=== PATIENT | male | born 1990 | race Caucasian/White ===

== ENCOUNTER 2024-04-15 17:25 | Inpatient (IN) | payer OTHER, SELFPAY ==
[2024-04-15] VITALS (13 sets, daily range): BP systolic 160–203; BP diastolic 102–128; PULSE 97–121; TEMP 37; O2SAT 98–100; BMI 41.1
--- NOTE | 2024-04-15 19:22 | PC.NURSE ---
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 Pt has rash to right forearm that pt reports is draining pus at home, none visualized upon assessment.
--- NOTE | 2024-04-15 19:28 | ED_ITS ---
HPI HPI - General Adult General Chief complaint: Skin/Abscess/Foreign Body Stated complaint: UE PAIN Time Seen by Provider: 04/15/24 19:22 Source: patient Mode of arrival: walk-in Limitations: no limitations History of Present Illness HPI narrative: patient presents complaining of a rash on his right forearm. States similar rash in the past of [place]. States he did apply calamine lotion and the rash has decreased some. also complains of feeling short of breath for a couple of days. No fever. Vomited once today. No chest pain. NIDDM Related Data Home Medications ?Medication ?Instructions ?Recorded ?Confirmed glimepiride 4 mg tablet 4 mg PO BID 04/15/24 04/15/24 metformin 1,000 mg tablet 1,000 mg PO BID 04/15/24 04/15/24 pioglitazone 45 mg tablet 45 mg PO .once daily 04/15/24 04/15/24 Allergies Allergy/AdvReac Type Severity Reaction Status Date / Time amoxicillin Allergy Mild Difficulty Verified 04/15/24 17:45 Breathing azithromycin [From Zithromax] Allergy Mild Anaphylaxis Verified 04/15/24 17:45 cefazolin Allergy Mild Anaphylaxis Verified 04/15/24 17:45 sulfamethoxazole Allergy Mild Anaphylaxis Verified 04/15/24 17:45 [From Bactrim] trimethoprim [From Bactrim] Allergy Mild Anaphylaxis Verified 04/15/24 17:45 Opioid HPI Opioid Management Most Recent Opioid Data: No Data to Display Review of Systems ROS Status of ROS 10 or more systems reviewed and unremark able except as noted in history and below Exam Constitutional Vital Signs, click to edit/add: Last Vital Signs Temp 98.6 F 04/15/24 17:32 Pulse 116 H 04/15/24 22:33 Resp 16 04/15/24 22:33 BP 160/102 H 04/15/24 19:20 Pulse Ox 98 04/15/24 22:33 O2 Del Method Room Air 04/15/24 22:33 Common normals: no apparent distress, average body habitus, oriented x3, no limitations, healthy appearing, alert and well nourished [facility] Common normals: normocephalic and head/scalp atraumatic Eye Common normals: PERRL, EOMs intact bilaterally and conjunctivae normal Respiratory Common normals: normal respiratory effort, no retractions, no use of accessory muscles and clear to auscultation bilaterally Cardio Common normals: regular rate, regular rhythm, S1 normal heart sound and S2 normal heart sound GI Common normals: Normal to inspection, nondistended, normoactive bowel sounds present, soft to palpation and non-tender Extremity Other: erythematous rash right forearm measuring approx 1 x 3 cm. center is dry from what appeared to be drainage earlier. nontender. Also few isolated 5mm satellite lesions Neuro Common normals: oriented x3, CN's II-XII intact bilaterally, moves all extremities, no focal motor deficits and no sensory deficits noted Psych Appearance: grossly normal Course Vital Signs Vital signs: Vital Signs Temperature 98.6 F 04/15/24 17:32 Pulse Rate 115 H 04/15/24 17:32 Respiratory Rate 20 04/15/24 17:32 Blood Pressure 203/128 H 04/15/24 17:32 Pulse Oximetry 99 04/15/24 17:32 Temperature 98.6 F 04/15/24 17:32 Pulse Rate 116 H 04/15/24 22:33 Respiratory Rate 16 04/15/24 22:33 Blood Pressure 160/102 H 04/15/24 19:20 Pulse Oximetry 98 04/15/24 22:33 Oxygen Delivery Method Room Air 04/15/24 22:33 Medical Decision Making MDM Narrative Medical decision making narrative: patient presents with contact dermatitis rash on his right forearm he also complained of feeling short of breath. States history of asthma as a kid workup in the department was neg including troponin, d-dimer , cxray. Patient given albuterol treatment and felt better. never had any obvious wheezing on exam but felt the treatment was definitely helpful. labs also demonstrated decreased bicarb. Patient denies past history of DKA. acetone returned positive and ABGs with evidence of metabolic acidosis. Patient and family informed of diagnosis of DKA. discussed with hospitalist who requested 10U reg insulin SQ and she will start insulin drip once he is upstairs Lab Data Labs: Lab Results 04/15/24 Range/Units 19:43 WBC 15.0 H (4.0-11.0) 10^3/uL RBC 5.37 (4.70-6.10) 10^6/uL Hgb 18.3 H (14.0-18.0) g/dL Hct 51.7 (42.0-54.0) % MCV 96.3 H (80.0-94.0) fL MCH 34.1 H (25.9-34.0) pg MCHC 35.4 H (29.9-35.2) g/dL RDW 11.9 (11.0-15.0) % Plt Count 338 (150-450) 10^3/uL MPV 10.7 (9.5-13.5) fL Neut % (Auto) 82.4 H (43.0-75.0) % Lymph % (Auto) 8.3 L (20.5-60.0) % [place] % (Auto) 7.0 (1.7-12.0) % Eos % (Auto) 0.5 L (0.9-7.0) % Baso % (Auto) 0.9 (0.2-2.0) % Neut # (Auto) 12.4 H (1.4-6.5) 10^3/uL Lymph # (Auto) 1.2 (1.2-3.8) 10^3/uL [place] # (Auto) 1.1 H (0.3-0.8) 10^3/uL Eos # (Auto) 0.1 (0.0-0.7) 10^3/uL Baso # (Auto) 0.1 (0.0-0.1) 10^3/uL Abs Immat Gran (auto) 0.13 H (0.00-0.03) 10^3/uL Imm/Tot Granulo (auto) 0.9 H (0.0-0.5) % D-Dimer 0.56 (<=0.59) mg/L FEU Sodium 130 L (136-145) mmol/L Potassium 4.6 (3.5-5.1) mmol/L Chloride 93 L (98-107) mmol/L Carbon Dioxide 12.8 L (21.0-32.0) mmol/L Anion Gap 28.8 BUN 15.0 (7.0-18.0) mg/dL Creatinine 1.40 H (0.70-1.30) mg/dL Est GFR ( Amer) >60 (>=60) Est GFR (Non-Af Amer) 59 L (>=60) BUN/Creatinine Ratio 10.7 Glucose 346 H (74-106) mg/dL Lactate 2.0 (0.4-2.0) mmol/L Calcium 9.8 (8.5-10.1) mg/dL Total Bilirubin 1.0 (0.2-1.0) mg/dL AST 8 L (15-37) U/L ALT 22 (16-63) U/L Alkaline Phosphatase 88 (46-116) U/L Troponin I High Sens <4.0 L (4.0-76.1) pg/mL Total Protein 8.8 H (6.4-8.2) g/dL Albumin 3.9 (3.4-5.0) g/dL Globulin 4.9 g/dL Albumin/Globulin Ratio 0.8 Discharge Plan Discharge Stand Alone Forms: Portal Instructions Chief Complaint: Skin/Abscess/Foreign Body Clinical Impression: Contact dermatitis, DKA, type 2 Patient Disposition: Admitted as Observation Prescriptions / Home Meds: No Action pioglitazone 45 mg tablet 45 mg PO .once daily metformin 1,000 mg tablet 1,000 mg PO BID glimepiride 4 mg tablet 4 mg PO BID Print Language: Welsh Additional Instructions: follow up with your doctor later this week for recheck Referrals: JULIA DEL CID [Primary Care Provider] - 1 week
--- NOTE | 2024-04-15 19:32 | XR_ITS ---
The [address] [address] Patient Name: PRINCESS NAZARIO MRN: [id number] date: 1990 Sex: M Assigned Patient Location: ER Current Patient Location: ER Accession/Order Number: [id number] Exam Date: 04/15/2024 19:42 Report Date: 04/15/2024 21:15 At the request of: ETHAN NAIDU Procedure: XR chest 2V EXAM: XR chest 2V HISTORY: short of breath COMPARISON: None. TECHNIQUE: PA, lateral chest x-ray. FINDINGS: Lungs clear without infiltrate or edema. Normal heart size and mediastinal contour. No pleural effusion or pneumothorax. XR/XR chest 2V IMPRESSION: Negative chest x-ray, no acute disease. Electronically authenticated by: DADA STEVENS Date: 04/15/2024 21:15
--- NOTE | 2024-04-15 19:33 | ECG_ITS ---
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
[2024-04-15 19:51] LABS: Basophils Absolute Auto 0.1 10^3/uL (0.0-0.1); Basophils Percent Auto 0.9 % (0.2-2.0); Eosinophils Absolute Auto 0.1 10^3/uL (0.0-0.7); Eosinophils Percent Auto 0.5 % (0.9-7.0); Hematocrit 51.7 % (42.0-54.0); Hemoglobin 18.3 g/dL (14.0-18.0); Immature Granulocytes Abs Auto 0.13 10^3/uL (0.00-0.03); Immature Granulocytes Pct Auto 0.9 % (0.0-0.5); Lymphocytes Absolute Auto 1.2 10^3/uL (1.2-3.8); Lymphocytes Percent Auto 8.3 % (20.5-60.0); Mean Corpuscular HGB Conc 35.4 g/dL (29.9-35.2); Mean Corpuscular Hemoglobin 34.1 pg (25.9-34.0); Mean Corpuscular Volume 96.3 fL (80.0-94.0); Mean Platelet Volume 10.7 fL (9.5-13.5); Monocytes Absolute Auto 1.1 10^3/uL (0.3-0.8); Neutrophils Absolute Auto 12.4 10^3/uL (1.4-6.5); Neutrophils Percent Auto 82.4 % (43.0-75.0); Platelet Count 338 10^3/uL (150-450); Red Blood Count 5.37 10^6/uL (4.70-6.10); Red Cell Distribution Width 11.9 % (11.0-15.0)
[2024-04-15 20:05] LABS: D Dimer 0.56 mg/L FEU (<=0.59)
[2024-04-15 20:18] LABS: Alanine Aminotransferase 22 U/L (16-63); Albumin Globulin Ratio 0.8; Albumin Level 3.9 g/dL (3.4-5.0); Alkaline Phosphatase 88 U/L (46-116); Anion Gap 28.8; Aspartate Amino Transferase 8 U/L (15-37); BUN Creatinine Ratio 10.7; Calcium 9.8 mg/dL (8.5-10.1); Carbon Dioxide 12.8 mmol/L (21.0-32.0); Chloride 93 mmol/L (98-107); Estimated GFR (African America >60 (>=60); Estimated GFR (Non-African Ame 59 (>=60); Globulin 4.9 g/dL; Glucose 346 mg/dL (74-106); Potassium 4.6 mmol/L (3.5-5.1); Sodium 130 mmol/L (136-145); Total Protein 8.8 g/dL (6.4-8.2); Troponin I High Sensitivity <4.0 pg/mL (4.0-76.1)
[2024-04-15] MEDS: ALBUTEROL SULFATE 2.5 MG/3 ML VIAL NEB IH (22:43)
[2024-04-15 23:21] LABS: Acetone MODERATE (NEGATIVE)
[2024-04-15 23:28] LABS: Allen Test POSITIVE (POSITIVE); Oxygen Saturation ABG 98.8 %
[2024-04-15 23:32] LABS: O2 Mode ROOM AIR
[2024-04-15 23:33] LABS: ABG PCO2 <15.4 mmHg (35.0-45.0); Puncture Site L RADIAL; pH ABG 7.139 (7.350-7.450)
[2024-04-15] MEDS: ONDANSETRON PF 4 MG/2 ML VIAL IV (23:39)
[2024-04-15] MEDS: INSULIN REGULAR 300 UNITS/3 ML 10 UNIT SUBQ (23:58)
[2024-04-16] VITALS (24 sets, daily range): BP systolic 128–160; BP diastolic 85–101; PULSE 87–119; TEMP 36.2–36.7; O2SAT 96–100; BMI 37.8
[2024-04-16 00:05] LABS: C Reactive Protein 10.48 mg/dL (<=0.50)
[2024-04-16 00:55] LABS: Lactate/Lactic Acid 2.5 mmol/L (0.4-2.0)
[2024-04-16 01:05] LABS: Glucometer 388 mg/dL (74-106)
[2024-04-16] MEDS: ACETAMINOPHEN 325 MG TABLET 650 MG PO (01:13)
[2024-04-16] MEDS: 0.9 % SODIUM CHLORIDE 1,000 ML 125 ML IV (01:16)
[2024-04-16] MEDS: FAMOTIDINE/PF 20 MG/2 ML VIAL IV ×2 (01:17→13:18)
[2024-04-16] MEDS: LORAZEPAM 2 MG/ML VIAL 1 MG IV (01:29)
[2024-04-16 02:15] LABS: Glucometer 359 mg/dL (74-106)
[2024-04-16 02:28] LABS: Glucometer 328 mg/dL (74-106)
[2024-04-16 02:40] LABS: Glucometer 289 mg/dL (74-106)
[2024-04-16] MEDS: INSULIN REGULAR IN 0.9 % NACL 100 UNIT/100 ML PLAST..BAG 12.63 UNIT IV (02:56)
[2024-04-16] MEDS: POTASSIUM CHLORIDE/D5-0.45NACL 1,000 ML 150 MEQ IV ×4 (03:00→22:34)
[2024-04-16 03:10] LABS: Glucometer 316 mg/dL (74-106)
[2024-04-16 04:02] LABS: Glucometer 327 mg/dL (74-106)
[2024-04-16 05:22] LABS: Hematocrit 49.7 % (42.0-54.0); Hemoglobin 17.8 g/dL (14.0-18.0); Mean Corpuscular HGB Conc 35.8 g/dL (29.9-35.2); Mean Corpuscular Hemoglobin 34.2 pg (25.9-34.0); Mean Corpuscular Volume 95.6 fL (80.0-94.0); Mean Platelet Volume 10.7 fL (9.5-13.5); Platelet Count 360 10^3/uL (150-450); Red Cell Distribution Width 11.9 % (11.0-15.0); White Blood Count 16.7 10^3/uL (4.0-11.0)
[2024-04-16 06:04] LABS: Alanine Aminotransferase 19 U/L (16-63); Albumin Globulin Ratio 0.7; Albumin Level 3.5 g/dL (3.4-5.0); Alkaline Phosphatase 85 U/L (46-116); Anion Gap 29.7; Aspartate Amino Transferase <5 U/L (15-37); BUN Creatinine Ratio 14.5; Calcium 9.6 mg/dL (8.5-10.1); Carbon Dioxide 10.1 mmol/L (21.0-32.0); Chloride 98 mmol/L (98-107); Chol HDL Ratio 5.6; Cholesterol 208 mg/dL (<=200); Estimated GFR (African America >60 (>=60); Estimated GFR (Non-African Ame >60 (>=60); Globulin 4.7 g/dL; Glucose 332 mg/dL (74-106); HDL Cholesterol 37 mg/dL (40-60); Phosphorus 2.9 mg/dL (2.6-4.7); Potassium 3.8 mmol/L (3.5-5.1); Sodium 134 mmol/L (136-145); Total Protein 8.2 g/dL (6.4-8.2); Triglycerides 135 mg/dL (<=150)
--- NOTE | 2024-04-16 06:05 | PC.NURSE ---
Patient has been sleeping most of the shift with the exception to use the urinal. Blood sugars have remained 289-388 range this shift. Patient c/o H/A tylenol given with good relief.Patient blood pressure and heart rate have improved with the IVF. Patient respiration are still elevated 30 resp/min. Oxygen sat 97 % on room air.
[2024-04-16 06:27] LABS: Atypical Lymphocytes Abs Man 0.33; Lymphocytes Absolute Manual 1.83 10^3/uL (1.20-3.80); Monocytes Absolute Manual 1.16 10^3/uL (0.30-0.80); Segmented Neut Absolute Manual 13.36 10^3/uL (1.4-6.5)
[2024-04-16] MEDS: INSULIN REGULAR IN 0.9 % NACL 100 UNIT/100 ML PLAST..BAG 11.8 UNIT IV (08:18)
[2024-04-16 09:14] LABS: Anion Gap 28.4; BUN Creatinine Ratio 12.3; Calcium 9.1 mg/dL (8.5-10.1); Carbon Dioxide 10.5 mmol/L (21.0-32.0); Chloride 100 mmol/L (98-107); Estimated GFR (African America >60 (>=60); Estimated GFR (Non-African Ame >60 (>=60); Glucose 371 mg/dL (74-106); Potassium 3.9 mmol/L (3.5-5.1); Sodium 135 mmol/L (136-145)
[2024-04-16 09:15] LABS: Phosphorus 2.5 mg/dL (2.6-4.7)
[2024-04-16] MEDS: ENOXAPARIN SODIUM 40 MG/0.4 ML SYRINGE SUBQ (09:22)
--- NOTE | 2024-04-16 11:16 | P.HP_ITS ---
HPI H&P: HPI History of Present Illness Chief complaint: UE PAIN DKA Narrative: 33 y/o male to ER with rash on right arm and nausea. History of DM and PCP moved to [place] and not followed since. States trying to find closer PCP. Reports ran out of medication about 1 week ago although pharmacy records show last filled in October. C/o red, itchy rash on right forearm for past week. Use OTC cream and slightly better. Developed nausea and emesis. Reports not checking BS often and last time 250-300. Not feeling well and to ER. Labs showed glucose of 346 but elevated anion gap. Serum ketones positive and ABG showed acidosis. Started insulin drip and admitted. Feels better this am and nausea resolved. Opioid HPI Opioid Management Most Recent Pain and Opioid Data: Last Pain Scale 5 04/16/24 01:13 Last Pain Assessment 04/16/24 09:00 Last MAR Pain Assessment 04/16/24 02:58 Last ORT Total Score 1 04/16/24 01:11 Last ORT Risk Category Low Risk 04/16/24 01:11 Review of Systems ROS Constitutional Denies: fever, chills or fatigue Cardiovascular Denies: chest pain, palpitations or edema Respiratory Denies: shortness of breath, cough or wheezing Gastrointestinal Reports: nausea and vomiting; Denies: abdominal pain or diarrhea Genitourinary Denies: painful urination PFSH PFSH Social History Highest level of school completed/degree received: 12th grade, no diploma Meds Home Medications and Allergies Home Medications ?Medication ?Instructions ?Recorded ?Confirmed ?Type glimepiride 4 mg tablet 4 mg PO BID 04/15/24 04/15/24 History metformin 1,000 mg tablet 1,000 mg PO BID 04/15/24 04/15/24 History pioglitazone 45 mg tablet 45 mg PO .once daily 04/15/24 04/15/24 History Allergies Allergy/AdvReac Type Severity Reaction Status Date / Time amoxicillin Allergy Mild Difficulty Verified 04/15/24 17:45 Breathing azithromycin [From Zithromax] Allergy Mild Anaphylaxis Verified 04/15/24 17:45 cefazolin Allergy Mild Anaphylaxis Verified 04/15/24 17:45 sulfamethoxazole Allergy Mild Anaphylaxis Verified 04/15/24 17:45 [From Bactrim] trimethoprim [From Bactrim] Allergy Mild Anaphylaxis Verified 04/15/24 17:45 Exam Constitutional Vital Signs, click to edit/add: Last Vital Signs Temp 98.1 F 04/16/24 04:30 Pulse 98 H 04/16/24 08:00 Resp 31 H 04/16/24 05:00 BP 128/89 04/16/24 04:30 Pulse Ox 97 04/16/24 08:00 O2 Del Method Room Air 04/16/24 01:11 Documenting provider has reviewed patient's vital signs: yes Common normals: no apparent distress, oriented x3 and alert HENMT Common normals: normocephalic Eye Common normals: PERRL and EOMs intact bilaterally Respiratory Common normals: normal respiratory effort and clear to auscultation bilaterally Cardio Common normals: regular rate, regular rhythm, no gallops, no murmurs and no rub GI Common normals: Normal to inspection, nondistended, normoactive bowel sounds present and non-tender Extremity Common normals: no pedal edema Results Labs Labs: Short CBC 04/15/24 04/16/24 Range/Units 19:43 05:07 WBC 15.0 H 16.7 H (4.0-11.0) 10^3/uL Hgb 18.3 H 17.8 (14.0-18.0) g/dL Hct 51.7 49.7 (42.0-54.0) % Plt Count 338 360 (150-450) 10^3/uL BMP 04/15/24 04/16/24 04/16/24 19:43 05:07 08:57 Sodium 130 L 134 L 135 L Potassium 4.6 3.8 3.9 Chloride 93 L 98 100 Carbon Dioxide 12.8 L 10.1 L 10.5 L BUN 15.0 18.0 16.0 Creatinine 1.40 H 1.24 1.30 Glucose 346 H 332 H 371 H Calcium 9.8 9.6 9.1 Liver Function 04/15/24 04/16/24 Range/Units 19:43 05:07 Total Bilirubin 1.0 1.0 (0.2-1.0) mg/dL AST 8 L <5 L (15-37) U/L ALT 22 19 (16-63) U/L Alkaline Phosphatase 88 85 (46-116) U/L Albumin 3.9 3.5 (3.4-5.0) g/dL ABG ABG results: 04/15/24 23:20 ABG pH 7.139 L* ABG pCO2 <15.4 L* ABG pO2 121.0 H ABG O2 Saturation 98.8 Assessment and Plan Assessment and Plan (1) DKA, type 2: (2) Contact dermatitis: (3) Type 2 diabetes mellitus with hyperglycemia: Plan Not on medication for at least several weeks and presented with DKA. Previously managed as type 2 DM but may now be insulin dependent. AG remains elevated and will need to continue insulin drip until normal. Continue IV fluids with D5 and monitor glucose. Check A1C and c-peptide. Once acidosis resolves will start levemir. Start clear liquids and advance as tolerated.
[2024-04-16 11:33] LABS: Estimated Average Glucose 298 mg/dL
--- NOTE | 2024-04-16 12:09 | CM.NOTE ---
04/16/24 09:[address] Flower. Discussed labs, treatment plan, possible need for insulin injections at discharge, to Advance diet and need for Diabetic education. Hugo verbalized understanding. Discussed importance of followup with his PCP. Hugo said he is currently looking for a new PCP that is closer to his home. elementary educator consulted.
--- NOTE | 2024-04-16 12:10 | SWNOTE1 ---
SW provided pt with a card that included the diabetic educators name and number and let him know that she will be in contact with pt, possibly during his stay or once he is home. Pt voiced understanding.
[2024-04-16] MEDS: TRIAMCINOLONE ACETONIDE 0.1% CREAM 15 GM TUBE 1 APPLIC TOPICAL ×3 (13:18→21:15)
[2024-04-16 13:36] LABS: Anion Gap 19.6; BUN Creatinine Ratio 11.5; Calcium 9.7 mg/dL (8.5-10.1); Carbon Dioxide 17.3 mmol/L (21.0-32.0); Chloride 102 mmol/L (98-107); Estimated GFR (African America >60 (>=60); Estimated GFR (Non-African Ame >60 (>=60); Glucose 268 mg/dL (74-106); Potassium 3.9 mmol/L (3.5-5.1); Sodium 135 mmol/L (136-145)
[2024-04-16] MEDS: INSULIN REGULAR IN 0.9 % NACL 100 UNIT/100 ML PLAST..BAG 15.8 UNIT IV (14:07)
[2024-04-16 14:18] LABS: Magnesium 2.2 mg/dL (1.8-2.4); Phosphorus 2.1 mg/dL (2.6-4.7)
[2024-04-16 17:11] LABS: BUN Creatinine Ratio 9.3; Calcium 9.3 mg/dL (8.5-10.1); Carbon Dioxide 18.5 mmol/L (21.0-32.0); Chloride 103 mmol/L (98-107); Estimated GFR (African America >60 (>=60); Estimated GFR (Non-African Ame >60 (>=60); Glucose 237 mg/dL (74-106); Potassium 3.5 mmol/L (3.5-5.1); Sodium 134 mmol/L (136-145)
[2024-04-16 17:29] LABS: Magnesium 2.1 mg/dL (1.8-2.4); Phosphorus 1.5 mg/dL (2.6-4.7)
[2024-04-16 21:41] LABS: Phosphorus 1.9 mg/dL (2.6-4.7); Potassium 3.4 mmol/L (3.5-5.1); Sodium 133 mmol/L (136-145)
[2024-04-16 21:42] LABS: Anion Gap 12.3; BUN Creatinine Ratio 7.6; Carbon Dioxide 22.1 mmol/L (21.0-32.0); Chloride 102 mmol/L (98-107); Estimated GFR (African America >60 (>=60); Estimated GFR (Non-African Ame >60 (>=60); Glucose 311 mg/dL (74-106)
[2024-04-16] MEDS: INSULIN REGULAR IN 0.9 % NACL 100 UNIT/100 ML PLAST..BAG 13.4 UNIT IV (21:43)
[2024-04-17] VITALS (8 sets, daily range): BP systolic 134; BP diastolic 80; PULSE 77–92; TEMP 36.3; O2SAT 97–99; BMI 37.8
[2024-04-17] MEDS: FAMOTIDINE/PF 20 MG/2 ML VIAL IV ×2 (01:04→11:38)
[2024-04-17 01:35] LABS: Alanine Aminotransferase 13 U/L (16-63); Albumin Globulin Ratio 0.7; Albumin Level 2.8 g/dL (3.4-5.0); Alkaline Phosphatase 68 U/L (46-116); Anion Gap 10.1; Aspartate Amino Transferase <5 U/L (15-37); BUN Creatinine Ratio 6.8; Bilirubin Total 0.5 mg/dL (0.2-1.0); Calcium 9.1 mg/dL (8.5-10.1); Carbon Dioxide 23.9 mmol/L (21.0-32.0); Chloride 104 mmol/L (98-107); Estimated GFR (African America >60 (>=60); Estimated GFR (Non-African Ame >60 (>=60); Globulin 3.8 g/dL; Glucose 184 mg/dL (74-106); Sodium 135 mmol/L (136-145); Total Protein 6.6 g/dL (6.4-8.2)
[2024-04-17 02:01] LABS: Bilirubin Urine SMALL (NEGATIVE); Blood Urine NEGATIVE (NEGATIVE); Clarity Urine CLEAR (CLEAR); Color Urine YELLOW (YELLOW); Glucose Urine UA >=1000 mg/dL (NEGATIVE); Ketones Urine 15 mg/dL (NEGATIVE); Leukocyte Esterase Urine NEGATIVE (NEGATIVE); Nitrite Urine NEGATIVE (NEGATIVE); Protein Urine NEGATIVE (NEG/TRACE); pH Urine 6.5 (5.0-9.0)
[2024-04-17 02:33] LABS: Bacteria Urine NONE SEEN #/HPF (NONE SEEN); Cast Seen? NONE SEEN #/LPF (NONE SEEN); Crystals Seen? None Seen #/HPF (None Seen); Mucus Urine NONE SEEN (NONE SEEN); RBC Urine 0-2 #/HPF (0-2); Squamous Epithelial Cell Urine NONE SEEN #/LPF (NONE/RARE); Urine Culture Indicated NO; WBC Urine 0-2 #/HPF (NONE SEEN)
[2024-04-17 04:07] LABS: C-Peptide, Serum 0.8 ng/mL (1.1-4.4)
[2024-04-17 06:11] LABS: Alanine Aminotransferase 14 U/L (16-63); Albumin Globulin Ratio 0.8; Albumin Level 2.9 g/dL (3.4-5.0); Alkaline Phosphatase 69 U/L (46-116); Anion Gap 20.7; Aspartate Amino Transferase 9 U/L (15-37); BUN Creatinine Ratio 8.8; Bilirubin Total 0.7 mg/dL (0.2-1.0); Calcium 9.5 mg/dL (8.5-10.1); Carbon Dioxide 15.2 mmol/L (21.0-32.0); Chloride 102 mmol/L (98-107); Estimated GFR (African America >60 (>=60); Estimated GFR (Non-African Ame >60 (>=60); Globulin 3.8 g/dL; Glucose 293 mg/dL (74-106); Potassium 3.9 mmol/L (3.5-5.1); Sodium 134 mmol/L (136-145); Total Protein 6.7 g/dL (6.4-8.2)
[2024-04-17] MEDS: TRIAMCINOLONE ACETONIDE 0.1% CREAM 15 GM TUBE 1 APPLIC TOPICAL (06:26)
--- NOTE | 2024-04-17 08:13 | PC.NURSE ---
this nurse in to educate patient in regard to diabetes and complete a history on patient in regard to dm dx pt is unsure of many aspects of his dm care and states that he didn't really know how long he was out of medication maybe a month pt does ask questions in regard to diet control- much talk was completed about counting carbs and sugars and pamphlet given and educated about portion control this nurse highly suggests a follow up appointment with self as a outpatient when patient can complete one at time of discharge- folder given along with information in regard to apps on his phone to monitor his diet intake pt seems to be compliant with doing that this nurse will return with phone apps for diet monitoring for the patient and more diet pamphlets to be given this nurse will also give list of times the patient can potentially schedule a outpatient appointment with me upon discharge from the hospital- pt at times seems confused in regard to care of self and at this time i feel more information may be overwhelming to the patient
[2024-04-17] MEDS: INSULIN ASPART 300 UNIT/3 ML PEN SUBQ ×3 (08:56→16:03)
[2024-04-17] MEDS: ENOXAPARIN SODIUM 40 MG/0.4 ML SYRINGE SUBQ (08:56)
[2024-04-17] MEDS: INSULIN DETEMIR 300 UNIT/3 ML INSULN.PEN 20 UNIT SUBQ (08:58)
[2024-04-17] MEDS: GLIPIZIDE 5 MG TAB.ER.24 10 MG PO (09:43)
--- NOTE | 2024-04-17 11:39 | PM.DS1 ---
DS: Providers Provider Date of admission: 04/16/24 00:45 Primary care physician: JULIA DEL CID DS: Diagnosis Discharge Diagnosis (1) DKA, type 2: (2) Contact dermatitis: (3) Type 2 diabetes mellitus with hyperglycemia: DS: Summary Hospital Course Hospital Course: Reason for admission: See H&P for details. 33 y/o male to ER with rash on right arm and nausea. History of DM and PCP moved to [place] and not followed since. States trying to find closer PCP. Reports ran out of medication about 1 week ago although pharmacy records show last filled in October. C/o red, itchy rash on right forearm for past week. Use OTC cream and slightly better. Developed nausea and emesis. Reports not checking BS often and last time 250-300. Not feeling well and to ER. Labs showed glucose of 346 but elevated anion gap. Serum ketones positive and ABG showed acidosis. Started insulin drip and admitted. Hospital course: Symptoms improved and nausea resolved. Started clear liquid diet. Continued to have elevated anion gap and remained on insulin drip. HgbA1C elevated at 12.0. C-peptide low. BS improved and anion gap normal. Stopped insulin drip and gave 20 units levemir. Started oral glipizide. BS stable. Seen by shoder filler and taught insulin injections. Discharged home in stable condition. Will continue levemir and glipizide. Need to establish with new PCP in 1-2 weeks. Time Spent with Patient Time attestation: Total time spent providing and/or coordinating discharge services: Time spent: greater than 30 minutes Exam Constitutional Vital Signs, click to edit/add: Last Vital Signs Temp 97.3 F L 04/17/24 05:02 Pulse 92 H 04/17/24 10:00 Resp 18 04/17/24 07:35 BP 134/80 04/17/24 05:02 Pulse Ox 97 04/17/24 11:22 O2 Del Method Room Air 04/17/24 11:22 Documenting provider has reviewed patient's vital signs: yes Common normals: no apparent distress, oriented x3 and alert HENMT Common normals: normocephalic Eye Common normals: PERRL and EOMs intact bilaterally Respiratory Common normals: normal respiratory effort and clear to auscultation bilaterally Cardio Common normals: regular rate, regular rhythm, no gallops, no murmurs and no rub GI Common normals: Normal to inspection, nondistended, normoactive bowel sounds present and non-tender Extremity Common normals: no pedal edema DS: Data Data Completed and Pending Labs on day of discharge: Labs from last 24 hours 04/17/24 04/17/24 04/17/24 05:48 01:50 01:09 Sodium 134 L 135 L Potassium 3.9 3.0 L Chloride 102 104 Carbon Dioxide 15.2 L 23.9 Anion Gap 20.7 10.1 BUN 8.0 8.0 Creatinine 0.91 1.18 Est GFR ( Amer) >60 >60 Est GFR (Non-Af Amer) >60 >60 BUN/Creatinine Ratio 8.8 6.8 Glucose 293 H 184 H Serum C-Peptide Calcium 9.5 9.1 Phosphorus Magnesium Total Bilirubin 0.7 0.5 AST 9 L <5 L ALT 14 L 13 L Alkaline Phosphatase 69 68 Total Protein 6.7 6.6 Albumin 2.9 L 2.8 L Globulin 3.8 3.8 Albumin/Globulin Ratio 0.8 0.7 Urine Color Yellow Urine Clarity Clear Urine pH 6.5 Ur Specific [place] 1.020 Urine Protein Negative Urine Glucose (UA) >=1000 A Urine Ketones 15 A Urine Occult Blood Negative Urine Nitrite Negative Urine Bilirubin Small A Urine Urobilinogen 1.0 Ur Leukocyte Esterase Negative Urine RBC 0-2 Urine WBC 0-2 A Ur Squamous Epith Cells None seen Urine Crystals None seen Urine Bacteria None seen Urine Casts None seen Urine Mucus None seen Ur Culture Indicated? No 04/16/24 04/16/24 04/16/24 21:20 16:50 12:57 Sodium 133 L 134 L 135 L Potassium 3.4 L 3.5 3.9 Chloride 102 103 102 Carbon Dioxide 22.1 18.5 L 17.3 L Anion Gap 12.3 16.0 19.6 BUN 9.0 12.0 15.0 Creatinine 1.18 1.29 1.31 H Est GFR ( Amer) >60 >60 >60 Est GFR (Non-Af Amer) >60 >60 >60 BUN/Creatinine Ratio 7.6 9.3 11.5 Glucose 311 H 237 H 268 H Serum C-Peptide 0.8 L Calcium 9.0 9.3 9.7 Phosphorus 1.9 L 1.5 L 2.1 L Magnesium 2.0 2.1 2.2 Total Bilirubin AST ALT Alkaline Phosphatase Total Protein Albumin Globulin Albumin/Globulin Ratio Urine Color Urine Clarity Urine pH Ur Specific [place] Urine Protein Urine Glucose (UA) Urine Ketones Urine Occult Blood Urine Nitrite Urine Bilirubin Urine Urobilinogen Ur Leukocyte Esterase Urine RBC Urine WBC Ur Squamous Epith Cells Urine Crystals Urine Bacteria Urine Casts Urine Mucus Ur Culture Indicated? Discharge Plan Discharge Disposition: Home, Self-Care Condition: Fair Discharge Medications: New Levemir FlexPen 100 unit/mL (3 mL) Insulin Pen 20 unit subcut QD Qty: 15 0RF (DME) pen needle, diabetic [Pen Needle] 32 gauge x 5/32 needle See Rx Instructions .Route Qty: 50 0RF Rx Instructions: As directed glipizide 10 mg tablet 10 mg PO BID Qty: 60 0RF Discontinued pioglitazone 45 mg tablet 45 mg PO .once daily metformin 1,000 mg tablet 1,000 mg PO BID glimepiride 4 mg tablet 4 mg PO BID Activity: increase activity as tolerated Diet: advance to your usual diet Print Language: Spanish Forms: Portal Instructions
[2024-04-17 11:40] LABS: Glucometer 400 mg/dL (74-106)
--- NOTE | 2024-04-17 11:40 | CM.NOTE ---
09:[address]. Flower discussed A1C results and plan for insulin at discharge. Also discussed need for Hugo to have a PCP. Plan is to have asthma educator to see Hugo today, Advance diet and if tolerated will discharge later today. Hugo verbalized understanding.
--- NOTE | 2024-04-18 15:33 | CM.DCFOLLOWU ---
1st attempt 04/18/24
--- NOTE | 2024-04-19 13:07 | CM.DCFOLLOWU ---
2nd attempt 04/19/24
--- NOTE | 2024-04-22 12:17 | CM.DCFOLLOWU ---
3rd attempt 04/22/24
== END 2024-04-17 16:10 | disposition home or self-care (01) | DRG 420 ==
LOC: ER 23:50 → ICU 04-16 07:55
PROVIDERS: Registered Nurse; Admitting Provider Family Medicine; Emergency Provider Internal Medicine; PCP Family Medicine; Visit Provider Family Medicine
DX: E11.10 Type 2 diabetes mellitus with ketoacidosis without coma (principal); L25.9 Unspecified contact dermatitis, unspecified cause; Z79.84 Long term (current) use of oral hypoglycemic drugs; Z79.899 Other long term (current) drug therapy; Z91.148 Patient's other noncompliance with medication regimen for other reason
CPT/HCPCS: 36415; 36600; 71046; 80048; 80053; 80061; 81001; 82009; 82805; 82948; 83036; 83605; 83735; 84100; 84484; 84681; 85007; 85025; 85027; 85378; 86140; 93005; 94640; 94761; 96361; 96365; 96366; 96372; 96375; 96376; 99285; 99406; J1650; J2060; J2405

== ENCOUNTER 2025-05-05 10:21 | Outpatient (OUT) | payer OTHER, SELFPAY ==
[2025-05-05 10:51] LABS: Hematocrit 47.6 % (42.0-54.0); Hemoglobin 17.1 g/dL (14.0-18.0); Immature Granulocytes Abs Auto 0.02 10^3/uL (0.00-0.03); Immature Granulocytes Pct Auto 0.3 % (0.0-0.5); Lymphocytes Absolute Auto 2.1 10^3/uL (1.2-3.8); Mean Corpuscular HGB Conc 35.9 g/dL (29.9-35.2); Mean Corpuscular Hemoglobin 32.9 pg (25.9-34.0); Mean Corpuscular Volume 91.7 fL (80.0-94.0); Platelet Count 232 10^3/uL (150-450); Red Blood Count 5.19 10^6/uL (4.70-6.10); White Blood Count 6.5 10^3/uL (4.0-11.0)
[2025-05-05 11:00] LABS: Microalbum Creatinine Ratio Ur 8.7 mg/g (0.0-29.9)
[2025-05-05 12:29] LABS: Alanine Aminotransferase 48 U/L (16-63); Albumin Globulin Ratio 1.1; Albumin Level 4.1 g/dL (3.4-5.0); Alkaline Phosphatase 43 U/L (46-116); Anion Gap 13.2; Aspartate Amino Transferase 32 U/L (15-37); Blood Urea Nitrogen 15.0 mg/dL (7.0-18.0); Calcium 9.3 mg/dL (8.5-10.1); Carbon Dioxide 29.6 mmol/L (21.0-32.0); Chloride 101 mmol/L (98-107); Cholesterol 155 mg/dL (<=200); Estimated GFR (African America >60 (>=60 mL/min/1.73m^2); Estimated GFR (Non-African Ame >60 (>=60 mL/min/1.73m^2); Globulin 3.6 g/dL; Glucose 285 mg/dL (74-106); HDL Cholesterol 40 mg/dL (40-60); Potassium 4.8 mmol/L (3.5-5.1); Sodium 139 mmol/L (136-145); Total Protein 7.7 g/dL (6.4-8.2); Triglycerides 180 mg/dL (<=150); VLDL CHOLESTEROL 36.0 mg/dL
== END 2025-05-05 10:22 | disposition home or self-care (01) ==
LOC: LAB 10:23
PROVIDERS: PCP Nurse Practitioner Family; Visit Provider Nurse Practitioner Family
DX: E11.9 Type 2 diabetes mellitus without complications (principal)
CPT/HCPCS: 36415; 80053; 80061; 82043; 82570; 85025

== ENCOUNTER 2025-07-11 10:14 | Outpatient (OUT) | payer OTHER, SELFPAY ==
--- OUTSIDE RECORDS SUMMARY | 2025-07-11 10:19 | XMS_ITS | Clinical Summary ---
Author Organization [employer] [facility] tem Address [id number] [place] [address] Care Team Providers Care Administrative Executive Name Role Phone Tom Gonzales DO Primary Care Provider [phone] Social History Tobacco Use Types Packs/Day Years Used Date Smoking Tobacco: Never Assessed Childcare Answer Date Recorded Childcare Unknown 03/20/2019 Employment Answer Date Recorded Employment Unknown 03/20/2019 Purpose - Life Answer Date Recorded Purpose and direction in life Unknown Sex and Gender Information Value Date Recorded Sex Assigned at Not on file Legal Sex Male 11:46 AM EDT Gender Identity Not on file Sexual Orientation Not on file Plan of Treatment Health Maintenance Due Date Last Done Comments Depression Screening 2004 Tobacco Screening 2004 Adult BMI Screening 2010 DTaP,Tdap and Td Vaccines (1 - Tdap) 2011 Influenza Vaccine 06/09/2025 Medical Devices Not on file Insurance [facility] [employer] Care Teams Administrative Executive Relationship Specialty Start Date End Date Tom Gonzales DO PCP - General 07/14/18
[2025-07-11 11:02] LABS: Glucose 326 mg/dL (74-106)
== END 2025-07-11 10:15 | disposition home or self-care (01) ==
PROVIDERS: PCP Nurse Practitioner Family
DX: E11.9 Type 2 diabetes mellitus without complications (principal)
CPT/HCPCS: 36415; 82947; 84681; 86337; 86341